=== PATIENT | male | born 1950 | race Caucasian/White ===

== ENCOUNTER → 2017-01-23 | Outpatient (CLI) | payer BC ==
[~2017-01-23] MED LIST: ATEN50TA8 PO; ATOR-24 PO; AVD5 PO; CLOP1TAB15 PO; GEMF600T3 PO
[2017-01-23 09:28] LABS: BASO % 0.3 %; BASO ABS # 0.02 K/uL (0-0.2); COMPLETE YES; EOS % 4.3 %; IG% 0.3 %; LYMPH % 41.6 %; MEAN CELL VOLUME 93.7 fL (80-100); MEAN CORPUSCULAR HEMOGLOBIN 31.4 pg (25-34); MEAN CORPUSCULAR HGB CONC 33.5 g/dl (32-36); MEAN PLATELET VOLUME 9.2 fL (7.4-10.4); MONO % 13.3 %; NEUT % 40.2 %; PLATELET COUNT 250 K/uL (130-400); RED BLOOD COUNT 4.59 M/uL (4.7-6.1); WHITE BLOOD COUNT 6.49 K/uL (4.8-10.8)
[2017-01-23 09:58] LABS: ALT/SGPT 31 U/L (12-78); AST/SGOT 16 U/L (15-37); BLOOD UREA NITROGEN 23 mg/dl (7-18); BUN/CREATININE RATIO 19.4 (10-20); CARBON DIOXIDE 26 mmol/L (21-32); CHLORIDE 113 mmol/L (98-107); GLUCOSE 103 mg/dl (70-99); SODIUM 144 mmol/L (136-145)
[2017-01-23 10:00] LABS: ALB/GLOB RATIO 0.9 (0.9-2); ALKALINE PHOSPHATASE 64 U/L (45-117); CHOLESTEROL 127 mg/dl (0-200); CHOLESTEROL/HDL RATIO 2.5; HDL CHOLESTEROL 51 mg/dl; LDL CHOLESTEROL CALCULATED 62 mg/dl; TRIGLYCERIDES 68 mg/dl (0-150); VERY LOW DENSITY LIPOPROT CALC 14 mg/dl
--- NOTE | 2017-01-30 09:01 | CODING QUERY NO DIAGNOSIS ---
TREATMENT RENDERED WITHOUT A DIAGNOSIS : 1950 To promote full compliance with coding requirements relating to patient care, physician participation is requested in all cases of radiology transcriptionist uncertainty. Please assist us with providing a diagnosis/symptom for the test(s) below: A diagnosis/symptom was not documented on your Order. A valid diagnosis/symptom is required to bill all insurances. Please remember that we are unable to code a diagnosis of rule out, probable, possible, questionable, or suspected. Tests that require a diagnosis: DOS: 01/23/17 * CBC WITH AUTO DIFFER DIAGNOSIS: * COMPREHENSIVE METABO DIAGNOSIS: * LIPID FAST RFLX LDLD DIAGNOSIS: Provider Signature: Date: Thank you Aliya Johnson Health Information Management Once completed, please kindly fax back to [phone] For questions please call [phone]
== END | disposition home or self-care (01) ==
LOC: C.LAB1850 08:49
PROVIDERS: ATTEND Internal Medicine Cardiovascular Disease
DX: I25.10 Atherosclerotic heart disease of native coronary artery without angina pectoris (principal)

== ENCOUNTER → 2017-06-23 | Outpatient (CLI) | payer BC ==
[2017-06-23 10:12] LABS: BASO % 0.4 %; BASO ABS # 0.03 K/uL (0-0.2); COMPLETE YES; IG% 0.3 %; LYMPH % 46.6 %; LYMPH ABS # 3.25 K/uL (1.2-3.4); MEAN CELL VOLUME 93.4 fL (80-100); MEAN CORPUSCULAR HEMOGLOBIN 31.4 pg (25-34); MEAN CORPUSCULAR HGB CONC 33.6 g/dl (32-36); MEAN PLATELET VOLUME 9.6 fL (7.4-10.4); MONO % 11.3 %; NEUT % 35.4 %; PLATELET COUNT 255 K/uL (130-400); RED BLOOD COUNT 4.71 M/uL (4.7-6.1); WHITE BLOOD COUNT 6.98 K/uL (4.8-10.8)
[2017-06-23 10:39] LABS: ALB/GLOB RATIO 0.9 (0.9-2); ALKALINE PHOSPHATASE 62 U/L (45-117); ALT/SGPT 33 U/L (12-78); AST/SGOT 18 U/L (15-37); BLOOD UREA NITROGEN 20 mg/dl (7-18); BUN/CREATININE RATIO 20.9 (10-20); CALCIUM 9.5 mg/dl (8.5-10.1); CARBON DIOXIDE 27 mmol/L (21-32); CHLORIDE 109 mmol/L (98-107); CHOLESTEROL 134 mg/dl (0-200); CHOLESTEROL/HDL RATIO 2.8; CREATININE 0.97 mg/dl (0.60-1.40); GLUCOSE 102 mg/dl (70-99); HDL CHOLESTEROL 48 mg/dl; LDL CHOLESTEROL CALCULATED 60 mg/dl; POTASSIUM 4.1 mmol/L (3.5-5.1); SODIUM 138 mmol/L (136-145); TRIGLYCERIDES 131 mg/dl (0-150); URIC ACID 5.2 mg/dl (2.6-7.2); VERY LOW DENSITY LIPOPROT CALC 26 mg/dl
[2017-06-23 10:47] LABS: PROSTATE SPECIFIC ANTIGEN 0.304 ng/ml (0.000-4.000); TOTAL IRON BINDING CAPACITY 341 mcg/dl (250-450)
[2017-06-23 12:15] LABS: ESTIMATED AVERAGE GLUCOSE 120 mg/dl; HA1C FLAG Normal (Normal)
== END | disposition home or self-care (01) ==
LOC: C.LAB1850 08:56
PROVIDERS: ATTEND Family Medicine
DX: R73.09 Other abnormal glucose (principal); E55.9 Vitamin D deficiency, unspecified; D51.9 Vitamin B12 deficiency anemia, unspecified; E78.9 Disorder of lipoprotein metabolism, unspecified; R53.83 Other fatigue

== ENCOUNTER → 2017-10-21 | Outpatient (CLI) | payer BC | END | disposition home or self-care (01) | LOC: C.LABSPEC 14:22 | PROVIDERS: ATTEND Family Medicine | DX: S89.91XA Unspecified injury of right lower leg, initial encounter (principal); X58.XXXA Exposure to other specified factors, initial encounter ==

== ENCOUNTER → 2018-02-15 | Outpatient (CLI) | payer BC ==
[~2018-02-15] MED LIST changes: -GEMF600T3 PO; +GEMF600T5 PO
[2018-02-15 10:11] LABS: BASO % 0.1 %; BASO ABS # 0.01 K/uL (0-0.2); EOS % 6.2 %; HEMATOCRIT 44.2 % (42-52); IG# 0.01 K/uL (0.00-0.02); LYMPH % 38.1 %; LYMPH ABS # 3.08 K/uL (1.2-3.4); MEAN CELL VOLUME 91.3 fL (80-100); MEAN CORPUSCULAR HGB CONC 33.9 g/dl (32-36); MEAN PLATELET VOLUME 9.5 fL (7.4-10.4); MONO ABS # 0.73 K/uL (0.11-0.59); NEUT % 46.5 %; NEUT ABS # 3.75 K/uL (1.4-6.5); PLATELET COUNT 250 K/uL (130-400); RED CELL DISTRIBUTION WIDTH CV 14.3 % (11.5-14.5); RED CELL DISTRIBUTION WIDTH SD 48.2 fL (36.4-46.3); WHITE BLOOD COUNT 8.08 K/uL (4.8-10.8)
[2018-02-15 10:54] LABS: BLOOD UREA NITROGEN 23 mg/dl (7-18); CREATININE 1.05 mg/dl (0.60-1.40); GLUCOSE 94 mg/dl (70-99)
[2018-02-15 10:55] LABS: ALBUMIN 3.7 gm/dl (3.4-5.0); ALKALINE PHOSPHATASE 73 U/L (45-117); ALT/SGPT 36 U/L (12-78); AST/SGOT 19 U/L (15-37); CALCIUM 9.1 mg/dl (8.5-10.1); CARBON DIOXIDE 22 mmol/L (21-32); CHOLESTEROL 131 mg/dl (0-200); LDL CHOLESTEROL CALCULATED 59 mg/dl; SODIUM 140 mmol/L (136-145); TOTAL PROTEIN 8.1 gm/dl (6.4-8.2); TRANSFERRIN 263 mg/dl (200-360); URIC ACID 4.9 mg/dl (2.6-7.2)
== END | disposition home or self-care (01) ==
LOC: C.LAB1850 08:57
PROVIDERS: ATTEND Family Medicine
DX: R73.09 Other abnormal glucose (principal); E55.9 Vitamin D deficiency, unspecified; D51.9 Vitamin B12 deficiency anemia, unspecified; E78.9 Disorder of lipoprotein metabolism, unspecified; R53.83 Other fatigue

== ENCOUNTER 2019-08-18 11:54 | Observation (INO) ==
[2019-08-18] MEDS ORDERED: ONDANSETRON INJ 2 MG/ML 2 ML VIAL IV STA (12:24)
[2019-08-18] MEDS ORDERED: ACETAMINOPHEN 1,000 MG/100 ML VIAL IV STA (12:24)
[2019-08-18] MEDS ORDERED: SODIUM CHLORIDE 0.9% 500 ML IV STA (12:24)
[2019-08-18] MEDS ORDERED: KETOROLAC TROMETHAMINE 15 MG/ML VIAL IV STA (12:24)
[2019-08-18 12:31] LABS: POC Urine Bilirubin Negative (Negative); POC Urine Blood 250 (Negative); POC Urine Glucose Normal (Normal); POC Urine Ketones Negative (Negative); POC Urine Leukocytes Negative (Negative); POC Urine Nitrite Negative (Negative); POC Urine Protein Trace (Negative); POC Urine Urobilinogen Normal (Normal); POC Urine pH 6 (4.5-7.5)
[2019-08-18 12:32] LABS: Hematocrit (blood only) 42.6 % (42-52); Hemoglobin 14.3 g/dL (14.0-18.0); Mean Corpuscular Hemoglobin 31.6 pg (25-34); Mean Corpuscular Hgb Conc 33.6 g/dL (32-36); Mean Platelet Volume 9.3 fL (7.4-10.4); Platelet Count 222 K/uL (130-400); RDW Coefficient of Variation 14.3 % (11.5-14.5); Red Blood Count 4.53 M/uL (4.7-6.1); White Blood Count 13.27 K/uL (4.8-10.8)
[2019-08-18 12:48] LABS: Appearance Urine Cloudy (Clear); Bacteria Urine Automated Negative (Negative); Bilirubin Urine Negative (Negative); Blood Urine 3+ (Negative); Color Urine Dark Yellow; Epithelial Cell Urine Auto 0-5 /lpf (0-5); Glucose Urine UA Negative (Negative); Ketones Urine Negative (Negative); Leukocyte Esterase Urine 1+ (Negative); Nitrite Urine Negative (Negative); Protein Urine Trace (Negative); Specific Gravity Urine 1.026 (1.000-1.030); Urobilinogen Urine Negative (Negative)
[2019-08-18 12:53] LABS: BUN Creatinine Ratio 21.4 (10-20); Calcium 9.4 mg/dl (8.5-10.1); Creatinine Clr Calc Pharmacy 70.4 ml/min; Est GFR (African American) 65.6; Est GFR (Non-African American) 56.6; Potassium 3.9 mmol/L (3.5-5.1)
--- NOTE | 2019-08-18 13:02 | CT Scan Report ---
CT abd pelvis wo con CLINICAL HISTORY: 68 years-old Male presenting with r flank pain. TECHNIQUE: Multidetector CT of the abdomen and pelvis was performed without the use of intravenous co ntrast. IV contrast: None. One or more dose lowering techniques were used consistent with the princip les of ALARA (as low as reasonably achievable), including automatic exposure control, mA or kV adjust ment to individual patient size, and/or use of iterative reconstruction. COMPARISON: 09/05/2014. CT DOSE (mGy.cm): The estimated cumulative dose is 1045.56 mGycm. FINDINGS: Repairer Shoe Sticks topogram: Unremarkable. Lung bases: Normal heart size. Coronary artery and aortic valve calcification. The interventricular b lood flow slightly less dense adjacent myocardium suggesting anemia. No pericardial or pleural effusi on. Minimal dependent changes likely atelectasis. Liver: Normal morphology. Normal density. Biliary: No gross biliary ductal dilatation allowing for noncontrast technique. Normal gallbladder. Pancreas: Normal noncontrast appearance. Spleen: Normal noncontrast appearance. Adrenal glands: Normal noncontrast appearance. Kidneys and ureters: Mild right pelvocaliectasis and distention of the proximal right ureter to the l evel of an obstructing 5 mm calculus. Moderate asymmetric right perinephric fat infiltration. Trace p erinephric fluid. Multiple bilateral nonobstructing renal calculi. Underlying renal cysts, the larger on the left, many which have thin mural calcification suggesting minimal complexity (Bosniak 2). Bladder: Normal noncontrast appearance. Pelvic organs: Normal noncontrast appearance. Bowel: Normal appendix. No bowel obstruction. Peritoneal cavity: No free fluid or intraperitoneal gas. Trace retroperitoneal fluid on the right. Lymph nodes: No gross lymphadenopathy allowing for noncontrast technique. Vasculature: Atherosclerosis of the normal caliber abdominal aorta. Abdominal wall: Normal. Musculoskeletal: Normal. IMPRESSION: 1. Obstructing 5 mm proximal right ureteral calculus with resultant mild right hydroureteronephrosis . The degree of retroperitoneal fluid is suspicious for underlying forniceal rupture. 2. Additional bilateral nonobstructing nephrolithiasis. 3. Possible anemia. ACT 112: Negative or not required by law. Electronically signed by: Torin Olivera M.D. 08/18/2019 1:00 PM
--- NOTE | 2019-08-18 14:05 | Emergency Department Note ---
Entered by Marilee Smith acting as a scribe for Saad Thomas MD History of Present Illness General Chief complaint: Kidney Stone Stated complaint: KIDNEY STONE, BACK PAIN Time Seen by Provider: 08/18/19 12:19 Source: patient History of Present Illness Onset (ago): day(s) 4 Location: right (flank) Severity: similar to prior episodes Pain Consistency: + intermittent Maximum Pain Intensity: 10 Quality: + sharp Relieved By: + medication (Advil) Associated symptoms: + other (right flank pain); no fever/chills The patient is a 68 year old male presenting to the Emergency Department complaining of intermittent flank pain starting 4 days go. The patient reports that he experienced sudden right-sided flank pain 4 days ago. He describes this pain as sharp. He states that he has been experiencing this pain daily. He notes that he has experienced these symptoms before as he has a history of kidney stones. He adds that he last passed a kidney stone 8 or 9 years ago. The patient reports that he has been taking Advil daily which has improved his pain. He st ates that he previously followed with Dr. Jj Urologist. He notes that his PCP referred him to the [facility] Emergency Department. The patient denies fevers, chills and testicular pain. Home Medications Home Medications Medication Instructions Recorded Confirmed Type atenolol [Tenormin] 50 mg PO QAM 08/18/19 08/18/19 History atorvastatin [Lipitor] 40 mg PO HS 08/18/19 08/18/19 History clopidogrel [Plavix] 75 mg PO QAM 08/18/19 08/18/19 History finasteride [Proscar] 5 mg PO HS 08/18/19 08/18/19 History gemfibrozil [Lopid] 600 mg PO BID 08/18/19 08/18/19 History nitroglycerin [Nitrostat] 0.4 mg SL Q5M PRN MDD 1.2 mg 08/18/19 08/18/19 History Allergies Allergy/AdvReac Type Severity Reaction Status Date / Time No Known Allergies Allergy Verified 08/18/19 13:21 Past Med/Surg History Medical History Antiplatelet or antithrombotic long-term use BPH (benign prostatic hyperplasia) CAD (coronary artery disease) Dyslipidemia GERD (gastroesophageal reflux disease) Mitral regurgitation Nephrolithiasis Old inferior wall myocardial infarction Family History Other Coronary heart disease Social History marital status: Current Living Situation: Spouse Feels Safe at Home: Yes Smoking Status: Former smoker Hx Alcohol Use: Yes Review of Systems See HPI for pertinent positives & negatives. and A total of 10 systems reviewed and were otherwise negative Physical Exam Vital Signs Vital Signs - 24 hr 08/18/19 12:02 08/18/19 13:54 08/18/19 15:00 Temperature 36.3 C L Temperature Source Oral Pulse Rate 74 Pulse Rate [Finger] 82 58 L Pulse Rhythm [Finger] Regular Regular Respiratory Rate 20 18 16 Respiratory Effort / Characteristics Non-Labored Spontaneous Non-Labored Respiratory Depth Normal Normal Respiratory Pattern Regular Regular Blood Pressure 147/74 H Blood Pressure [Right Arm] 133/63 116/58 L Blood Pressure Mean 98 Blood Pressure Mean [Right Arm] 86 77 Blood Pressure Position Sitting Pulse Oximetry 99 96 93 Oxygen Delivery Method Room Air Room Air Room Air Sepsis Recent Fever Within 48 Hours No Sepsis New/Unexplained Change in Mental Status No Sepsis Action Taken by Nursing No Action Required 08/18/19 16:30 Temperature Temperature Source Pulse Rate 63 Pulse Rate [Finger] Pulse Rhythm [Finger] Respiratory Rate 16 Respiratory Effort / Characteristics Respiratory Depth Respiratory Pattern Blood Pressure 119/65 Blood Pressure [Right Arm] Blood Pressure Mean Blood Pressure Mean [Right Arm] Blood Pressure Position Pulse Oximetry 93 Oxygen Delivery Method Room Air Sepsis Recent Fever Within 48 Hours Sepsis New/Unexplained Change in Mental Status Sepsis Action Taken by Nursing GENERAL: Patient is in no acute distress. HEENT: No acute trauma, normocephalic atraumatic, mucous membranes moist, no nasal congestion, no scleral icterus. NECK: No stridor, no adenopathy, no meningismus, trachea is midline. LUNGS: Clear to auscultation bilaterally, no wheeze, no rhonchi, breath sounds equal. HEART: Without murmurs gallops or rubs, regular rate and rhythm. ABDOMEN: Mildly tender along right side of the abdomen. Soft, bowel sounds positive, no hernias, no peritonitis. BACK: Right flank discomfort to percussion. EXTREMITIES: No cyanosis or edema, full range of motion of all the joints without pain or difficulty, no signs for acute trauma. NEUROLOGIC: Oriented x 3, no acute motor or sensory deficits, no focal weakness. SKIN: No rash, no jaundice, no diaphoresis. Course Course 1220: The patient was evaluated in room B5, and a complete history and physical examination were performed. 1310: I discussed the patients case with Na KC for Dr. Douglas OCONNELL Urology. Dr. Cole reported that there is no current need for emergent intervention but that the patient should stay in the hospital. He states that if the patient doesnt pass the stone by tomorrow then a stent may need to be placed. 1312: I updated the patient at this time. 1352: I discussed the patients case with Dr. Ankush OCONNELL hospitalist. She reports that she will evaluate the patient for further management. Administered Medications Discontinued Medications Acetaminophen (Ofirmev) 1,000 mg in 100 mls @ 400 mls/hr IV NOW STA Stop: 08/18/19 12:38 Last Infusion: 08/18/19 12:49 Dose: 0 mls/hr Documented by: [id number] Admin: 08/18/19 12:32 Dose: 400 mls/hr Documented by: [id number] Sodium Chloride (Nss) 500 mls @ 999 mls/hr IV .Q31M STA Stop: 08/18/19 12:54 Last Infusion: 08/18/19 13:01 Dose: 0 mls/hr Documented by: [id number] Admin: 08/18/19 12:32 Dose: 999 mls/hr Documented by: [id number] Ketorolac Tromethamine (Toradol) 15 mg IV ONE STA Stop: 08/18/19 12:25 Last Admin: 08/18/19 12:32 Dose: 15 mg Documented by: [id number] Ondansetron HCl (Zofran) 4 mg IV NOW STA Stop: 08/18/19 12:25 Last Admin: 08/18/19 12:32 Dose: 4 mg Documented by: [id number] Medical Decision Making Differential Diagnosis Differential diagnoses include renal colic, hydronephrosis, pyleonephritis, UTI, biliary colic, renal failure and musculoskeletal pain amongst others. Medical Records Attestation: I reviewed the patient's medical records. Home Medications Current Medication List: was personally reviewed by az Laboratory Data Attestation: I reviewed the patient's lab results. Result diagrams: 08/18/19 12:19 08/18/19 12:19 Lab Results 08/18/19 08/18/19 08/18/19 Range/Units 12:19 12:19 12:19 WBC 13.27 H (4.8-10.8) K/uL RBC 4.53 L (4.7-6.1) M/uL Hgb 14.3 (14.0-18.0) g/dL Hct 42.6 (42-52) % MCV 94.0 (80-100) fL MCH 31.6 (25-34) pg MCHC 33.6 (32-36) g/dL RDW Std Deviation 49.0 H (36.4-46.3) fL RDW Coeff of Karl 14.3 (11.5-14.5) % Plt Count 222 (130-400) K/uL MPV 9.3 (7.4-10.4) fL Sodium 140 (136-145) mmol/L Potassium 3.9 (3.5-5.1) mmol/L Chloride 110 H (98-107) mmol/L Carbon Dioxide 25 (21-32) mmol/L Anion Gap 5.0 (3-11) BUN 28 H (7-18) mg/dl Creatinine 1.29 (0.6-1.4) mg/dl Est Cr Clr Drug Dosing 70.4 ml/min Est GFR ( Amer) 65.6 Est GFR (Non-Af Amer) 56.6 BUN/Creatinine Ratio 21.4 H (10-20) Glucose 133 H (70-99) mg/dl Calcium 9.4 (8.5-10.1) mg/dl Urine Color Urine Appearance (Clear) Urine pH (4.5-7.5) POC Urine pH 6 (4.5-7.5) Ur Specific [place] (1.000-1.030) Urine Protein (Negative) POC Urine Protein Trace H (Negative) Urine Glucose (UA) (Negative) POC Ur Glucose (UA) Normal (Normal) Urine Ketones (Negative) POC Urine Ketones Negative (Negative) Urine Blood (Negative) POC Urine Blood 250 H (Negative) Urine Nitrite (Negative) POC Urine Nitrite Negative (Negative) Urine Bilirubin (Negative) POC Urine Bilirubin Negative (Negative) Urine Urobilinogen (Negative) POC Urine Urobilinogen Normal (Normal) Ur Leukocyte Esterase (Negative) POC U Leukocyte Esteras Negative (Negative) Urine WBC (Auto) (0-5) /hpf Urine RBC (Auto) (0-4) /hpf U Hyaline Cast (Auto) (0-5) /lpf U Epithel Cells (Auto) (0-5) /lpf Urine Bacteria (Auto) (Negative) 08/18/19 Range/Units 12:19 WBC (4.8-10.8) K/uL RBC (4.7-6.1) M/uL Hgb (14.0-18.0) g/dL Hct (42-52) % MCV (80-100) fL MCH (25-34) pg MCHC (32-36) g/dL RDW Std Deviation (36.4-46.3) fL RDW Coeff of Karl (11.5-14.5) % Plt Count (130-400) K/uL MPV (7.4-10.4) fL Sodium (136-145) mmol/L Potassium (3.5-5.1) mmol/L Chloride (98-107) mmol/L Carbon Dioxide (21-32) mmol/L Anion Gap (3-11) BUN (7-18) mg/dl Creatinine (0.6-1.4) mg/dl Est Cr Clr Drug Dosing ml/min Est GFR ( Amer) Est GFR (Non-Af Amer) BUN/Creatinine Ratio (10-20) Glucose (70-99) mg/dl Calcium (8.5-10.1) mg/dl Urine Color Dark Yellow Urine Appearance Cloudy A (Clear) Urine pH 5.0 (4.5-7.5) POC Urine pH (4.5-7.5) Ur Specific [place] 1.026 (1.000-1.030) Urine Protein Trace H (Negative) POC Urine Protein (Negative) Urine Glucose (UA) Negative (Negative) POC Ur Glucose (UA) (Normal) Urine Ketones Negative (Negative) POC Urine Ketones (Negative) Urine Blood 3+ H (Negative) POC Urine Blood (Negative) Urine Nitrite Negative (Negative) POC Urine Nitrite (Negative) Urine Bilirubin Negative (Negative) POC Urine Bilirubin (Negative) Urine Urobilinogen Negative (Negative) POC Urine Urobilinogen (Normal) Ur Leukocyte Esterase 1+ H (Negative) POC U Leukocyte Esteras (Negative) Urine WBC (Auto) 10-30 H (0-5) /hpf Urine RBC (Auto) 10-30 H (0-4) /hpf U Hyaline Cast (Auto) 1-5 (0-5) /lpf U Epithel Cells (Auto) 0-5 (0-5) /lpf Urine Bacteria (Auto) Negative (Negative) Imaging Data Radiologist's Impression: Radiology results as stated below per my review and the radiologist's interpretation: CT abd pelvis wo con CLINICAL HISTORY: 68 years-old Male presenting with r flank pain. TECHNIQUE: Multidetector CT of the abdomen and pelvis was performed without the use of intravenous contrast. IV contrast: None. One or more dose lowering techniques were used consistent with the principles of ALARA (as low as reasonably achievable), including automatic exposure control, mA or kV adjustment to individual patient size, and/or use of iterative reconstruction. COMPARISON: 09/05/2014. CT DOSE (mGy.cm): The estimated cumulative dose is 1045.56 mGycm. FINDINGS: Vamp Marker topogram: Unremarkable. Lung bases: Normal heart size. Coronary artery and aortic valve calcification. The interventricular blood flow slightly less dense adjacent myocardium suggesting anemia. No pericardial or pleural effusion. Minimal dependent changes likely atelectasis. Liver: Normal morphology. Normal density. Biliary: No gross biliary ductal dilatation allowing for noncontrast technique. Normal gallbladder. Pancreas: Normal noncontrast appearance. Spleen: Normal noncontrast appearance. Adrenal glands: Normal noncontrast appearance. Kidneys and ureters: Mild right pelvocaliectasis and distention of the proximal right ureter to the level of an obstructing 5 mm calculus. Moderate asymmetric right perinephric fat infiltration. Trace perinephric fluid. Multiple bilateral nonobstructing renal calculi. Underlying renal cysts, the larger on the left, many which have thin mural calcification suggesting minimal complexity (Bosniak 2). Bladder: Normal noncontrast appearance. Pelvic organs: Normal noncontrast appearance. Bowel: Normal appendix. No bowel obstruction. Peritoneal cavity: No free fluid or intraperitoneal gas. Trace retroperitoneal fluid on the right. Lymph nodes: No gross lymphadenopathy allowing for noncontrast technique. Vasculature: Atherosclerosis of the normal caliber abdominal aorta. Abdominal wall: Normal. Musculoskeletal: Normal. IMPRESSION: 1. Obstructing 5 mm proximal right ureteral calculus with resultant mild right hydroureteronephrosis. The degree of retroperitoneal fluid is suspicious for underlying forniceal rupture. 2. Additional bilateral nonobstructing nephrolithiasis. 3. Possible anemia. ACT 112: Negative or not required by law. Electronically signed by: Torin Olivera M.D. 08/18/2019 1:00 PM Blood Pressure Blood Pressure Findings: Elevated blood pressure Blood Pressure Disposition: further management by hospitalist MDM Narrative There is a mild leukocytosis which could be consistent with infection or the pain. No concerning anemia. No significant electrolyte abnormality or kidney failure. Urinalysis does show hematuria, no evidence for infection. Abdominal and pelvis CT shows a 5 mm proximal right ureteral stone with a forniceal rupture presumed. Hydronephrosis was present. The patient presents with right flank pain and some nausea. He appears to have a right ureteral stone as the cause for his symptoms. I discussed the case with urology. A hospital stay was felt warranted. Patient may be stented tomorrow. I did speak to the patient and case management coordinator. The on- call hospitalist was consulted. The patient received IV saline, IV Tylenol, IV Toradol and IV Zofran, he is feeling more comfortable. Impression & Plan Renal colic, Hydronephrosis, Right flank pain Discharge Plan Visit Data Chief Complaint: Kidney Stone Stated Complaint: KIDNEY STONE, BACK PAIN ED Provider: Saad Thomas Discharge Problem: Renal colic, Hydronephrosis, Right flank pain Patient Disposition: Being Evaluated by Hospitalist Discharge Instructions Interventions: ED Discharge Assessment Last Done: 08/18/19 16:30 Forms Stand Alone Forms: My [facility] Prescriptions Prescriptions: No Action atorvastatin [Lipitor] 40 mg tablet 40 mg PO HS RF: 0 clopidogrel [Plavix] 75 mg tablet 75 mg PO QAM RF: 0 gemfibrozil [Lopid] 600 mg tablet 600 mg PO BID RF: 0 nitroglycerin [Nitrostat] 0.4 mg tablet, sublingual 0.4 mg SL Q5M MDD 1.2 mg PRN (Reason: Chest Pain) RF: 0 atenolol [Tenormin] 50 mg tablet 50 mg PO QAM RF: 0 finasteride [Proscar] 5 mg tablet 5 mg PO HS RF: 0 Referrals Referrals: Shaw Pelletier MD [Primary Care Provider] - Discharge Problem: Hydronephrosis Qualifiers: Hydronephrosis type: unspecified Qualified Code(s): N13.30 - Unspecified hydronephrosis The scribe's documentation has been prepared under my direction and personally reviewed by me in its entirety. I confirm that the note above accurately reflects all work, treatment, procedures, and medical decision making performed by me.
--- NOTE | 2019-08-18 15:38 | History & Physical Report ---
Date of Service August 18, 2019 Assessment & Plan (1) Renal colic: Admit to [facility] Vital signs every 4 hours Replenish electrolytes Continue IV fluid hydration for obstructing calculus in the right ureter. Consult urology for possible stent placement in a.m. N.p.o. after midnight for possible procedure of stent placement by urology DVT prophylaxis SCDs and teds Full code Present on Admission?: Yes (2) Hydronephrosis: As the above Present on Admission?: Yes (3) Right flank pain: As the above Pain management Antinausea medication Continue IV hydration Present on Admission?: Yes (4) Mitral regurgitation: Stable at this point, continue controlling blood pressure and hyperlipidemia. Present on Admission?: Yes (5) Dyslipidemia: Fasting lipid panel pending. Continue gemfibrozil 600 mg p.o. twice daily, atorvastatin 40 mg p.o. nightly. Present on Admission?: Yes (6) CAD (coronary artery disease): Stable, continue atenolol 50 mg p.o. every morning, Atorvastatin 40 mg p.o. nightly, Clopidogrel 75 mg p.o. every morning, Gemfibrozil 600 mg p.o. twice daily, Nitroglycerin 0.4 mg SL every 5 minutes as needed. Present on Admission?: Yes (7) Old inferior wall myocardial infarction: As the above, continue management of coronary artery disease, dietary implementation and medical management. (8) Benign prostatic hyperplasia: Stable, continue finasteride 5 mg p.o. nightly. Tamsulosin 0.04 mg nightly Present on Admission?: Yes History of Present Illness Chief Complaint: Right flank pain Primary Care Provider: Shaw Pelletier MD The patient is a 68 years old male with past medical history of hyperlipidemia, hypertension, coronary artery disease, who presents to the emergency room with a complaint of right flank pain for 2 to 3 days. Patient states that in the past he had kidney stones and this appears to be another episode. Patient was seen by urology in the past with , but he said it was most likely 4 to 5 years ago. Patient denies fever, chills, chest pain, shortness of breath, abdominal pain, frequency, urgency. Labs are reviewed and WBCs is 13.27, hemoglobin 14.3, hematocrit 42.6, platelets 222, sodium 140, potassium 3.9, chloride 110, carbon dioxide 25, anion gap 5, BUN 28, creatinine 1.29, GFR 56.6, hemoglobin A1c in February 2019 6, calcium 9.4. Urine is cloudy, with trace protein and 3+ blood,Negative nitrate, leukocyte esterase 1+, WBCs 10-30, and RBCs 10-30.CT abdomen and pelvis without IV contrast shows: Right flank pain obstructing 5 mm proximal right ureteral calculus with resultant mild right hydro-urine hydronephrosis. The degree of retroperitoneal fluid is suspicion for underlying fornical rupture. Additional bilateral nonobstructing nephrolithiasis. Possible anemia. Decision was [facility] and urinary tract infection and for further evaluation by urology. Allergies Allergy/AdvReac Type Severity Reaction Status Date / Time No Known Allergies Allergy Verified 08/18/19 13:21 Home Medications Home Medications Medication Instructions Recorded Confirmed Type atenolol [Tenormin] 50 mg PO QAM 08/18/19 08/18/19 History atorvastatin [Lipitor] 40 mg PO HS 08/18/19 08/18/19 History clopidogrel [Plavix] 75 mg PO QAM 08/18/19 08/18/19 History finasteride [Proscar] 5 mg PO HS 08/18/19 08/18/19 History gemfibrozil [Lopid] 600 mg PO BID 08/18/19 08/18/19 History nitroglycerin [Nitrostat] 0.4 mg SL Q5M PRN MDD 1.2 mg 08/18/19 08/18/19 History Past Med/Surg History Medical History Antiplatelet or antithrombotic long-term use BPH (benign prostatic hyperplasia) CAD (coronary artery disease) Dyslipidemia GERD (gastroesophageal reflux disease) Mitral regurgitation Nephrolithiasis Old inferior wall myocardial infarction Family History Other Coronary heart disease Social History marital status: Current Living Situation: Spouse Feels Safe at Home: Yes Smoking Status: Former smoker Hx Alcohol Use: Yes Review of Systems Review of Systems: All systems reviewed & are unremarkable except as noted in HPI & below Physical Exam Constitutional: WD/WN, vitals as above well developed Eyes: PERRL, conjunctivae normal, anicteric sclerae ENMT: external ear and nose normal, oropharynx normal Neck: trachea midline, no thyromegaly Cardiovascular: Heart Sounds: normal S1, normal S2 and + murmur (Mitral valve regurgitation) Vessels: dorsalis pedis pulses present Gastrointestinal (Abdomen): normal bowel sounds, soft, nontender, no hepatosplenomegaly Musculoskeletal: no cyanosis or clubbing, extremities motor strength 5/5 Skin: no rashes, warm and dry Neurologic: patellar DTR's 2+ bilat, sensation intact Genitourinary: Right flank pain Lymphatic: no cervical or axillary lymphadenopathy Results & Data Vital Signs (Past 12 Hours) Vital Signs Temp Pulse Pulse Resp BP BP Pulse Ox 08/18/19 15:00 58 L 16 116/58 L 93 08/18/19 13:54 82 18 133/63 96 08/18/19 12:02 36.3 C L 74 20 147/74 H 99 Code Status & VTE Plan Code Status Full code VTE Prophylaxis Plan VTE Prophylaxis will be ordered: Yes PG Care Time/CCT Total # of Minutes Spent Total Time Spent with Patient: Total time spent is greater than 50% in coordination of care (as documented) at patient's floor/unit and/or counseling patient: Coding Level of Care Code 70679 Initial Inpt Care Lvl 3 Diagnoses Renal colic N23 Hydronephrosis N13.30 Hydronephrosis type: unspecified Right flank pain R10.9 Mitral regurgitation I34.0 Dyslipidemia E78.5 CAD (coronary artery disease) I25.10 Old inferior wall myocardial infarction I25.2 Benign prostatic hyperplasia N40.0 (1) Hydronephrosis Hydronephrosis type: unspecified Qualified Code(s): N13.30 - Unspecified hydronephrosis
[2019-08-18] MEDS ORDERED: POLYETHYLENE (MIRALAX) 17 GM PACK PO PRN (17:07)
[2019-08-18] MEDS ORDERED: MAGNESIUM HYDROXIDE SUSP 30 ML UDC PO PRN (17:07)
[2019-08-18] MEDS ORDERED: ONDANSETRON INJ 2 MG/ML 2 ML VIAL IV PRN (17:07)
[2019-08-18] MEDS ORDERED: ACETAMINOPHEN 325 MG TAB PO PRN (17:07)
[2019-08-18] MEDS ORDERED: NITROGLYCERIN SL 0.4 MG/TAB TAB SL PRN (17:07)
[2019-08-18] MEDS ORDERED: ALUMINUM/MAGNESIUM SUSP 30 ML UDC PO PRN (17:07)
[2019-08-18] MEDS: KETOROLAC TROMETHAMINE 15 MG/ML VIAL IV PRN (17:28)
[2019-08-18] MEDS: NSS + 20MEQ KCL 20 MEQ/1,000 ML BAG IV SCH (17:37)
[2019-08-18] MEDS ORDERED: cefTRIAXone SODIUM 2,000 MG in DEXTROSE 5% 50 ML IV SCH (18:00)
[2019-08-18] MEDS: gemfibroziL 600 MG TAB PO SCH (20:41)
[2019-08-18] MEDS ORDERED: FINASTERIDE 5 MG TAB PO SCH (21:00)
[2019-08-18] MEDS ORDERED: TAMSULOSIN HCL 0.4 MG CAP PO SCH (21:00)
[2019-08-18] MEDS ORDERED: ATORVASTATIN 40 MG TAB PO SCH (21:00)
[2019-08-19] MEDS: NSS + 20MEQ KCL 20 MEQ/1,000 ML BAG IV SCH (04:18)
[2019-08-19] MEDS: KETOROLAC TROMETHAMINE 15 MG/ML VIAL IV PRN (05:52)
[2019-08-19] MEDS ORDERED: CIPROFLOXACIN 400 MG/200 ML BAG IV SCH (06:00)
[2019-08-19 06:18] LABS: Basophils # (auto) 0.02 K/uL (0-0.2); Basophils % (auto) 0.2 %; Eosinophils # (auto) 0.28 K/uL (0-0.5); Eosinophils % (auto) 2.7 %; Hematocrit (blood only) 38.1 % (42-52); Hemoglobin 12.7 g/dL (14.0-18.0); Immature Granulocytes # (auto) 0.03 K/uL (0.00-0.02); Immature Granulocytes % (auto) 0.3 %; Lymphocytes # (auto) 2.85 K/uL (1.2-3.4); Lymphocytes % (auto) 27.8 %; Mean Corpuscular Hemoglobin 31.1 pg (25-34); Mean Corpuscular Hgb Conc 33.3 g/dL (32-36); Mean Corpuscular Volume 93.4 fL (80-100); Mean Platelet Volume 9.3 fL (7.4-10.4); Monocytes # (auto) 1.14 K/uL (0.11-0.59); Monocytes % (auto) 11.1 %; Neutrophils # (auto) 5.92 K/uL (1.4-6.5); Neutrophils % (auto) 57.9 %; Platelet Count 206 K/uL (130-400); RDW Coefficient of Variation 14.1 % (11.5-14.5); RDW Standard Deviation 48.4 fL (36.4-46.3); Red Blood Count 4.08 M/uL (4.7-6.1); White Blood Count 10.24 K/uL (4.8-10.8)
[2019-08-19 06:28] LABS: INR 1.1 (0.9-1.1); Partial Thromboplastin Time 27.6 Seconds (21.0-31.0); Prothrombin Time 10.8 Seconds (9.0-12.0)
[2019-08-19 06:47] LABS: Estimated Average Glucose 126 mg/dl
[2019-08-19 06:48] LABS: Albumin Level 2.9 gm/dl (3.4-5.0); BUN Creatinine Ratio 16.8 (10-20); Calcium 8.8 mg/dl (8.5-10.1); Creatinine Clr Calc Pharmacy 52.4 ml/min; Est GFR (Non-African American) 39.7; Potassium 4.1 mmol/L (3.5-5.1)
[2019-08-19 06:51] LABS: Albumin Globulin Ratio 0.7 (0.9-2); Bilirubin,Total 1.3 mg/dl (0.2-1); Globulin 4.3 gm/dl (2.5-4.0); Total Protein 7.2 gm/dl (6.4-8.2)
[2019-08-19] MEDS: MoRPHine SULFATE 2 MG/ML CARP IV PRN ×2 (07:08→10:28)
[2019-08-19] MEDS: gemfibroziL 600 MG TAB PO SCH (08:29)
--- NOTE | 2019-08-19 08:38 | Urology Consultation ---
Date of Consultation August 19, 2019 Assessment & Plan (1) Hydronephrosis: (2) Right ureteral stone: 68 yo M admitted with right renal colic secondary to 5 mm proximal right ureteral stone. - Ordered KUB - Keep NPO - Strain all urine Findings reviewed with Dr. Jj. Given his right renal colic, ANÍBAL, and hydronephrosis in the context of an obstructing 5 mm right ureteral stone, will proceed with OR for cystoscopy, Right retrograde pyelogram and Right stent placement. Risks and benefits to be reviewed with patient by Dr. Jj. OR notified. Preoperative CXR and EKG ordered. Will cover with IV Ciprofloxacin preoperatively. Discussed with patient . will do retrograde and possible right ureteroscopy but likely stent History of Present Illness Attending Physician: Nelson Lechuga MD History of Present Illness 68 yo M with past medical history of OR, nephrolithiasis, CAD, dyslipidemia, BPH admitted with right flank pain secondary to 5 mm proximal right ureteral stone. Patient admitted through [facility] on 08/18/19 for intermittent right flank pain that started 5 days prior to arrival. Chart review: Afebrile Cr - 1.73 WBC - 10.24 UC&S - pending On IV Ceftriaxone CT abd/pelvis demonstrated obstructing 5 mm proximal right ureteral calculus, mild right hydroureteronephrosis; retroperitoneal fluid suspicious for underlying forniceal rupture. Additional bilateral nonobstructing nephrolithiasis. Alert, sitting up in bed. Was utilizing PO Ketorolac yesterday with moderate relief, but states it provided minimal relief this morning. Pain is improved currently after a dose of IV morphine this AM. No f/c/n/v. Voiding spontaneously. No dysuria, hematuria, or urgency. Followed with [facility] [place] in the [place], Dr. Jj, for history of nephrolithia sis. He reports spontaneous passage in the past, last stone ~8-9 years ago. Allergies Allergy/AdvReac Type Severity Reaction Status Date / Time No Known Allergies Allergy Verified 08/18/19 13:21 Home Medications Home Medications Medication Instructions Recorded Confirmed Type atenolol [Tenormin] 50 mg PO QAM 08/18/19 08/18/19 History atorvastatin [Lipitor] 40 mg PO HS 08/18/19 08/18/19 History clopidogrel [Plavix] 75 mg PO QAM 08/18/19 08/18/19 History finasteride [Proscar] 5 mg PO HS 08/18/19 08/18/19 History gemfibrozil [Lopid] 600 mg PO BID 08/18/19 08/18/19 History nitroglycerin [Nitrostat] 0.4 mg SL Q5M PRN MDD 1.2 mg 08/18/19 08/18/19 History Patient History Medical History (Updated 08/19/19 @ 10:36 by John Hong MD) Acute renal disease creat up from 1 to 1.7 with stone Antiplatelet or antithrombotic long-term use BPH (benign prostatic hyperplasia) CAD (coronary artery disease) Dyslipidemia GERD (gastroesophageal reflux disease) Mitral regurgitation Nephrolithiasis Old inferior wall myocardial infarction Surgical History (Updated 08/19/19 @ 10:29 by John Hong MD) No significant past surgical history Family History Other Coronary heart disease Social History Preferred Language: Pashto Communication Ability: Effective 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 Required: No Beliefs That Will Affect Care: None marital status: Current Living Situation: Spouse Feels Safe at Home: Yes Smoking Status: Former smoker Hx Alcohol Use: No Hx Substance Use: No Review of Systems Constitutional: as per Subjective / HPI Gastrointestinal: as per Subjective / HPI Genitourinary: + as per Subjective / HPI Physical Exam Constitutional: well developed and well nourished; no acute distress and not ill appearing nontoxic in appearance Respiratory: normal respiratory effort and able to speak in complete sentences; no labored breathing Cardiovascular: Extremities: no pedal edema Gastrointestinal (Abdomen): Inspection/Auscultation: abdomen normal to inspection; abdomen not distended Percussion/Palpation: abdomen soft; abdomen nontender and no guarding Neurologic: moves all extremities and awake Psychiatric: A+Ox3, euthymic affect Genitourinary: no CVA tenderness Voiding spontaneously, urine not vi sualized during exam Results & Data Vital Signs (Past 12 Hours) Vital Signs Temp Pulse Resp BP BP Pulse Ox 08/19/19 08:09 36.9 C 69 16 113/61 93 08/18/19 22:59 37.1 C 65 16 112/65 92 PG Care Time/CCT Total # of Minutes Spent Total Time Spent with Patient: Total time spent is greater than 50% in coordination of care (as documented) at patient's floor/unit and/or counseling patient: Coding Level of Care Code 15532 Inpt Consult Level 3 Diagnoses Hydronephrosis N13.30 Hydronephrosis type: unspecified Right ureteral stone N20.1 (1) Hydronephrosis Hydronephrosis type: unspecified Qualified Code(s): N13.30 - Unspecified hydronephrosis
--- NOTE | 2019-08-19 08:56 | XRay Report ---
XR chest 1V portable CLINICAL HISTORY: 68 years-old Male presenting with pre-op. TECHNIQUE: Portable upright AP view of the chest was obtained. COMPARISON: None. FINDINGS: Atherosclerosis of the aortic arch. Cardiac silhouette normal in size. A new opacity at the right ana maria g base. Minimal left basilar opacity also noted. No large effusion or pneumothorax. Osseous structure s normal. Upper abdomen normal. IMPRESSION: 1. Minimal basilar opacities likely atelectasis or scarring. No convincing evidence of acute cardiop ulmonary disease. ACT 112: Negative or not required by law. Electronically signed by: Torin Olivera M.D. 08/19/2019 8:54 AM
[2019-08-19] MEDS ORDERED: CLOPIDOGREL BISULFATE 75 MG TAB PO SCH (09:00)
[2019-08-19] MEDS ORDERED: ATENOLOL 50 MG TABLET PO SCH (09:00)
--- NOTE | 2019-08-19 09:04 | XRay Report ---
XR KUB/Abdomen 1 view CLINICAL HISTORY: 68 years-old Male presenting with right ureteral stone. TECHNIQUE: Single supine view of the abdomen was obtained. COMPARISON: CT from 08/18/2019. FINDINGS: Nonobstructive bowel gas pattern. No gross pneumoperitoneum. Thin calcifications associated with the left kidney relate to the presence of minimally complex cysts . Underlying bilateral nephrolithiasis is better appreciated on recent CT. The recently demonstrated proximal right ureteral calculus is not confidently visualized. Osseous structures normal. IMPRESSION: 1. Recently demonstrated the proximal right ureteral calculus on CT not identified on this exam. 2. Bilateral nephrolithiasis also better appreciated on CT. 3. Thin mural calcification associated with the underlying minimally complex left renal cysts noted. ACT 112: Negative or not required by law. Electronically signed by: Torin Olivera M.D. 08/19/2019 9:02 AM
[2019-08-19] MEDS ORDERED: IOTHALAMATE MEGLUMINE II 17.2% 250 ML VIAL ONE (10:27)
--- NOTE | 2019-08-19 10:31 | Anesthesiology Consultation ---
Date of Service August 19, 2019 Assessment & Plan (1) Encounter for pre-operative examination: Chart Review Chart Review: Acceptable Risk for Surgery History Surgery Operation Date: 08/19/19 09:55 Proposed Procedures p Cystoscopy Retrograde Pyelogram, Right Stent Placement - Case Jj MD Height/Weight Height: 6 ft Weight: 110.3 kg Allergies Allergy/AdvReac Type Severity Reaction Status Date / Time No Known Allergies Allergy Verified 08/18/19 13:21 Medications Home Medications Medication Instructions Recorded Confirmed Last Taken atenolol [Tenormin] 50 mg PO QAM 08/18/19 08/18/19 08/18/19 atorvastatin [Lipitor] 40 mg PO HS 08/18/19 08/18/19 08/17/19 clopidogrel [Plavix] 75 mg PO QAM 08/18/19 08/18/19 08/18/19 finasteride [Proscar] 5 mg PO HS 08/18/19 08/18/19 08/17/19 gemfibrozil [Lopid] 600 mg PO BID 08/18/19 08/18/19 08/18/19 nitroglycerin [Nitrostat] 0.4 mg SL Q5M PRN MDD 1.2 mg 08/18/19 08/18/19 Unknown Active Medications Generic Name Dose Route Start Last Admin Trade Name Freq PRN Reason Stop Dose Admin Atenolol 50 mg 08/19/19 09:00 08/19/19 08:35 Tenormin PO 09/18/19 08:59 50 mg QAM SALVADOR Administration Atorvastatin Calcium 40 mg 08/18/19 21:00 08/18/19 20:41 Lipitor PO 09/17/19 20:59 40 mg HS SALVADOR Administration Clopidogrel Bisulfate 75 mg 08/19/19 09:00 08/19/19 08:29 Plavix PO 09/18/19 08:59 Not Given QAM SALVADOR Finasteride 5 mg 08/18/19 21:00 08/18/19 20:41 Proscar PO 09/17/19 20:59 5 mg HS SALVADOR Administration Gemfibrozil 600 mg 08/18/19 21:00 08/19/19 08:29 Lopid PO 09/17/19 20:59 Not Given BID SALVADOR Ceftriaxone Sodium 2,000 mg/ 70 mls @ 100 mls/hr 08/18/19 18:00 08/18/19 19:08 Dextrose IV 08/28/19 17:59 Infused DAILY@1800 SALVADOR Infusion Protocol Potassium Chloride/Sodium Chloride 20 meq in 1,000 mls @ 100 mls/hr 08/18/19 17:07 08/19/19 06:06 Normal Saline W/20 Meq Kcl IV 09/17/19 17:06 100 mls/hr .Q10H SALVADOR Infusion Ketorolac Tromethamine 15 mg 08/18/19 17:07 08/19/19 05:52 Toradol IV 08/23/19 17:06 15 mg Q6H PRN Administration Pain Protocol Morphine Sulfate 2 mg 08/18/19 17:07 08/19/19 10:28 Morphine Sulfate IV 09/01/19 17:06 2 mg Q2H PRN Administration Pain Tamsulosin HCl 0.4 mg 08/18/19 21:00 08/18/19 20:41 Flomax PO 09/17/19 20:59 0.4 mg HS SALVADOR Administration NPO Date Last Intake of Fluids: 08/19/19 Time Last Intake of Fluids: 00:00 Date Last Intake of Solids: 08/19/19 Time Last Intake of Solids: 00:00 Past Medical History Medical History (Updated 08/19/19 @ 10:36 by John Hong MD) Acute renal disease creat up from 1 to 1.7 with stone Antiplatelet or antithrombotic long-term use BPH (benign prostatic hyperplasia) CAD (coronary artery disease) Dyslipidemia GERD (gastroesophageal reflux disease) Mitral regurgitation Nephrolithiasis Old inferior wall myocardial infarction Past Family History Family History Other Coronary heart disease Past Surgical History Surgical History (Updated 08/19/19 @ 10:29 by John Hong MD) No significant past surgical history Social History Smoking Status: Former smoker Hx Alcohol Use: No Hx Substance Use: No Physical Exam Vital Signs Last Vital Signs Temp 36.9 C 08/19/19 08:09 Pulse 69 08/19/19 08:09 Resp 16 08/19/19 08:09 BP 113/61 08/19/19 08:09 Pulse Ox 93 08/19/19 08:09 Testing Laboratory Results 08/19/19 06:07 08/19/19 06:07 PT 10.8 Seconds (9.0-12.0) 08/19/19 06:07 INR 1.1 (0.9-1.1) 08/19/19 06:07 APTT 27.6 Seconds (21.0-31.0) 08/19/19 06:07 Hemoglobin A1c 6.0 % (4.5-5.6) H 08/19/19 06:07 Urine Color Dark Yellow 08/18/19 12:19 Urine Appearance Cloudy (Clear) A 08/18/19 12:19 Urine pH 5.0 (4.5-7.5) 08/18/19 12:19 Ur Specific Embarrass 1.026 (1.000-1.030) 08/18/19 12:19 Urine Protein Trace (Negative) H 08/18/19 12:19 Urine Glucose (UA) Negative (Negative) 08/18/19 12:19 Urine Ketones Negative (Negative) 08/18/19 12:19 Urine Nitrite Negative (Negative) 08/18/19 12:19 Ur Leukocyte Esterase 1+ (Negative) H 08/18/19 12:19 Urine WBC (Auto) 10-30 /hpf (0-5) H 08/18/19 12:19 Urine RBC (Auto) 10-30 /hpf (0-4) H 08/18/19 12:19 U Hyaline Cast (Auto) 1-5 /lpf (0-5) 08/18/19 12:19 U Epithel Cells (Auto) 0-5 /lpf (0-5) 08/18/19 12:19 Urine Bacteria (Auto) Negative (Negative) 08/18/19 12:19 Electrocardiogram Date: 08/19/19 Findings: + NSR @ (78) and + CA (old inferior) Chest X-Ray Date: 08/19/19 Findings: + NAD
[2019-08-19] MEDS ORDERED: fentaNYL citrate 100 MCG/2 ML VIAL ONE (10:57)
[2019-08-19] MEDS ORDERED: MIDAZOLAM HCL 1 MG/ML 2ML VIAL ONE (10:57)
[2019-08-19] MEDS ORDERED: LIDOCAINE HCL 2% 2 ML VIAL/AMP(20MG/ML) INFIL ONE (10:57)
[2019-08-19] MEDS ORDERED: PROPOFOL IV EMULSION 10 MG/ML 20 ML VIAL IV ONE (10:57)
--- NOTE | 2019-08-19 12:41 | Post Operative Brief Note ---
PG Immediate Post Op with CF Date of Surgery August 19, 2019 Pre & Post Diagnosis Operation Date: 08/19/19 09:55 Pre-Op Diagnosis: Hydronephrosis, Right Ureteral Stone Post-Op Diagnosis: Hydronephrosis, Right Ureteral Stone I identified the patient and participated in the time-out.: Yes Procedure Operation Date: 08/19/19 09:55 Actual Procedures p Cystoscopy, Right Retrograde Pyelogram, Ureteral Dilation, Laser fragmentation of stone, Right Stent Placement(Right) - Case Jj MD Surgeon Case Jj MD Grinding Machine Tender none Estimated Blood Loss 10 Findings Consistent with Post-Op Diagnosis Specimens Specimen Description: none per surgeon
[2019-08-19] MEDS ORDERED: DEXAMETHASONE SOD INJ 4 MG/ML VIAL ONE (12:54)
[2019-08-19] MEDS ORDERED: ONDANSETRON INJ 2 MG/ML 2 ML VIAL ONE (12:54)
--- NOTE | 2019-08-19 13:24 | Anesthesiology Progress Note ---
Date of Service August 19, 2019 Anesthesia Post Procedure Vital Signs Vital Signs: Temp Pulse Pulse Pulse Resp BP BP 08/19/19 13:20 36.9 C 67 17 128/59 L 08/19/19 13:10 84 19 123/67 08/19/19 13:00 74 18 116/63 08/19/19 12:51 36.6 C 78 18 122/51 L 08/19/19 10:54 37.0 C 72 18 08/19/19 08:09 36.9 C 69 16 113/61 08/18/19 22:59 37.1 C 65 16 08/18/19 16:50 36.8 C 59 L 16 08/18/19 16:30 63 16 119/65 08/18/19 15:00 58 L 16 08/18/19 13:54 82 18 BP Pulse Ox 08/19/19 13:20 95 08/19/19 13:10 100 08/19/19 13:00 98 08/19/19 12:51 99 08/19/19 10:54 133/63 100 08/19/19 08:09 93 08/18/19 22:59 112/65 92 08/18/19 16:50 126/74 95 08/18/19 16:30 93 08/18/19 15:00 116/58 L 93 08/18/19 13:54 133/63 96 Pain Intensity Right Flank: Pain Intensity: 4 Transfer of Care Handoff Completed per policy Notes Mental Status: alert / awake / arousable Patient Amnestic to Procedure: Yes Nausea / Vomiting: adequately controlled Pain: adequately controlled Airway Patency, RR, SpO2: stable & adequate BP & HR: stable & adequate Hydration State: stable & adequate Anesthetic Complications: no major complications apparent
--- NOTE | 2019-08-19 14:39 | Fluoroscopy Report ---
FL retrograde includes kub CLINICAL HISTORY: Laser lithotripsy COMPARISON STUDY: Supine abdomen dated 08/19/2019 FLUOROSCOPY TIME: 64 seconds. NUMBER OF FLUOROSCOPIC IMAGES: 9 FINDINGS: Images demonstrate retrograde catheterization of the right ureter. A guidewire was placed i nto the renal pelvis. A ureteroscope was introduced and by history laser lithotripsy was performed. T he final image demonstrates the proximal pigtail right-sided nephroureteral stent. IMPRESSION: Intraprocedural images during a right-sided retrograde study with laser lithotripsy and stent placement. ACT 112: Negative or not required by law. Electronically signed by: Brennan Mcnulty M.D. 08/19/2019 2:38 PM
--- NOTE | 2019-08-19 17:30 | Operative Report ---
DATE OF OPERATION: 08/19/2019 PROCEDURE PERFORMED: Right ureteroscopy, laser lithotripsy and stent placement. HISTORY OF PRESENTATION: The patient is a 68-year-old male with previous history of passing stones who presented with several days of right flank pain that was unremitting to the ER yesterday, was admitted, had ongoing pain this morning. On the CT scan there was a proximal 5-6 mm stone that was difficult to see on KUB this morning. The patient again takes Plavix and nitroglycerin. Because of the fact it was difficult to see, initially we were just planning on placing a stent and possibly doing lithotripsy down the road, but given the complexity of being on Plavix with this I attempted to do a ureteroscopy. 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 After he was taken to the OR and given general anesthesia, prepped and draped in the usual sterile fashion and placed in dorsal lithotomy position cystoscopy was performed. There was a stricture that was dilated with a 17-Peruvian scope and then a 21-Peruvian scope subsequently. Once inside the bladder the prostate was minimally obstructing and I could see some small stones in the bladder, but the right ureteral orifice was not traumatized. Retrograde was performed and there was clearly hydronephrosis, could not definitely see a stone, but there appeared to be blockage in the proximal ureter. So I placed a Dual-Flex guidewire beyond this into the renal pelvis on the right side and then dilated the distal ureter with a 4 cm 18 Peruvian balloon until it was clearly large enough for a flexible scope. Subsequently, I was able to place a second guidewire beyond the stone and then I put the flexible ureteroscope up to the stone. I was able to fragment the stone into 5-6 pieces. The 2 larger pieces appeared to be 2-3 mm and more difficult to reach as they bounced around and I was having episodes where the laser fiber would hit the wall and so after breaking the stone into pieces I thought would probably pass and given the trauma to the wall was having I elected to terminate the procedure and place a 6-Peruvian 26 cm stent. It appeared to be in good position proximally at the end of the procedure with the strings of the distal part of the stent in the bladder. The patient was transferred to recovery room in stable condition. I attest to the content of the Intraoperative Record and any orders documented therein. Any exception s are noted below.
[2019-08-19 18:46] LABS: BUN Creatinine Ratio 19.6 (10-20); Calcium 8.9 mg/dl (8.5-10.1); Creatinine Clr Calc Pharmacy 64.3 ml/min; Est GFR (African American) 58.9; Est GFR (Non-African American) 50.8; Potassium 4.2 mmol/L (3.5-5.1)
--- NOTE | 2019-08-19 18:50 | Discharge Summary ---
Date of Service August 19, 2019 Admission HPI Per Admitting Provider The patient is a 68 years old male with past medical history of hyperlipidemia, hypertension, coronary artery disease, who presents to the emergency room with a complaint of right flank pain for 2 to 3 days. Patient states that in the past he had kidney stones and this appears to be another episode. Patient was seen by urology in the past with , but he said it was most likely 4 to 5 years ago. Patient denies fever, chills, chest pain, shortness of breath, abdominal pain, frequency, urgency. Labs are reviewed and WBCs is 13.27, hemoglobin 14.3, hematocrit 42.6, platelets 222, sodium 140, potassium 3.9, chloride 110, carbon dioxide 25, anion gap 5, BUN 28, creatinine 1.29, GFR 56.6, hemoglobin A1c in February 2019 6, calcium 9.4. Urine is cloudy, with trace protein and 3+ blood,Negative nitrate, leukocyte esterase 1+, WBCs 10-30, and RBCs 10-30.CT abdomen and pelvis without IV contrast shows: Right flank pain obstructing 5 mm proximal right ureteral calculus with resultant mild right hydro-urine hydronephrosis. The degree of retroperitoneal fluid is suspicion for underlying fornical rupture. Additional bilateral nonobstructing nephrolithiasis. Possible anemia. Decision was made to admit patient for nephrolithiasis to [facility] and urinary tract infection and for further evaluation by urology. Principal Diagnosis Right sided ureterolithiasis, renal colic, ANÍBAL, UTI Discharge Exam Constitutional WD/WN, vitals as above Eyes + anicteric sclerae ENMT external ear and nose normal, oropharynx normal Neck trachea midline, no thyromegaly Respiratory normal respiratory effort, lungs clear to auscultation Cardiovascular RRR, no murmur, no edema Chest (Breasts) Chest: normal inspection of chest Gastrointestinal (Abdomen) normal bowel sounds, soft, nontender, no hepatosplenomegaly Musculoskeletal Extremities: extremities normal to inspection; no cyanosis and no clubbing Skin no rashes, warm and dry Neurologic moves all extremities and awake; no focal motor deficits Psychiatric A+Ox3, euthymic affect Lymphatic no lymphedema Discharge Data Allergies Allergy/AdvReac Type Severity Reaction Status Date / Time No Known Allergies Allergy Verified 08/18/19 13:21 Consultations 08/18/19 13:29 ED Decision to Admit Stat 08/18/19 17:07 Consult Urology Routine Procedures Performed Operation Date: 08/19/19 09:55 Actual Procedures p Right Stent Placement(Right) - Case Jj MD s Cystoscopy, Right Retrograde Pyelogram, Ureteral Dilation, Laser fragmentation of stone,(Right) - Case Jj MD Ordered Studies 08/18/19 12:24 CT abd pelvis wo con Stat 08/19/19 10:15 FL retrograde includes kub Routine CXR KUB Hospital Course (1) Renal colic: Admitted and given pain control, IVFs Right 5-6mm prox ureteral stone seen on imaging Urology consulted and due to ANÍBAL, pt was taken to OR and had stent placement and fragmentation of stone -treat with Cipro prophylactically x 5 day course UA positive for infection Pain resolved after stent placement but will give small supply of Percocet prn pain, continue FLomax x 7 day course Ur culture growing GNR at the time of discharge and this will need to be followed by your PCP after discharge Cipro given x 10 day course while stent in place for UTI F/u with Urology within 2 weeks for stent removal (2) Hydronephrosis: secondary to ureterolithiasis, now resolved with stent placement (3) Mitral regurgitation: Stable at this point, continue controlling blood pressure and hyperlipidemia. (4) Dyslipidemia: Continue gemfibrozil 600 mg p.o. twice daily, atorvastatin 40 mg p.o. nightly. (5) CAD (coronary artery disease): Stable, continue atenolol 50 mg p.o. every morning, Atorvastatin 40 mg p.o. nightly, Clopidogrel 75 mg p.o. every morning, Gemfibrozil 600 mg p.o. twice daily, Nitroglycerin 0.4 mg SL every 5 minutes as needed. (6) Old inferior wall myocardial infarction: As the above, continue management of coronary artery disease, dietary implementation and medical management. (7) Benign prostatic hyperplasia: Stable, continue finasteride 5 mg p.o. nightly. Tamsulosin 0.4 mg nightly (8) UTI (urinary tract infection): as above -continue CIpro 500mg po bid x 10 days until stent removed Ur culture with GNR at time of discharge--> Ur culture result needs to be followed after discharge (9) ANÍBAL (acute kidney injury): Electromechanisms Design Drafter up to 1.7 after admission secondary to post-renal obstruciton with stone Improved to 1.4 after stent placement and IVF hydration -encouraged po hydration after discharge -repeat BMP with PCP at f/u visit in 1-2 weeks Expect this should resolve -avoid NSAIDs Stable for discharge to home Total Time Total Time Spent Total Time Spent (In Minutes): 35 min Total Time Includes: Examination of the Patient, Discharge Planning and Medication Reconciliation Discharge Plan Discharge Items Patient Disposition: Home - Self-Care Reason For Visit: RIGHT FLANK PAIN Discharge Diagnosis: Kidney stone, Acute kidney injury Condition on Discharge: Good Activity: As commented below Lifting: Wait until after follow-up appointment Bathing: No limitations Exercise/Sports: Gradually increase as tolerated Non-emergency contact: Primary Care Provider and Urologist Call non-emergency contact if: you have any medication questions, your symptoms worsen, your pain is not controlled, your pain is worsening, your pain is unusual for you, your pain is concerning for you, you have a fever and your temperature is above 101 Follow-up/Referrals: Case Jj MD [Physician] - (Please call on Thursday for a hospital follow up appointment to have your stent removed.) Shaw Pelletier MD [Primary Care Provider] - (Please follow up within 1-2 weeks) Diet: Heart Healthy Addtl Attending Provider Instructions: You had a kidney stone and had a procedure to break up the stone and a stent was placed to allow the stones to pass. You had some mild kidney failure from the obstruction the stone caused. Please continue to take Flomax once daily x 7 days and drink plenty of fluids. You can take tylenol or Percocet as needed for pain. Please take the antibiotic Cipro twice a day for 10 more days for urinary tract infection. Follow up with your PCP and Urology within 1-2 weeks. Pending Studies at Discharge: Yes (urine culture) Stand-Alone Forms: My [facility] Link Medications and DC Order Prescriptions: New acetaminophen [Mapap (acetaminophen)] 325 mg Tablet 650 mg PO Q4H PRN (Reason: pain) Qty: 30 RF: 0 tamsulosin 0.4 mg Capsule 0.4 mg PO HS Qty: 7 RF: 0 oxycodone-acetaminophen [Percocet] 5-325 mg tablet 1 tab PO Q8H PRN (Reason: pain) Qty: 10 RF: 0 ciprofloxacin HCl [Cipro] 500 mg tablet 500 mg PO BID Qty: 20 RF: 0 Continued atorvastatin [Lipitor] 40 mg tablet 40 mg PO HS RF: 0 clopidogrel [Plavix] 75 mg tablet 75 mg PO QAM RF: 0 gemfibrozil [Lopid] 600 mg tablet 600 mg PO BID RF: 0 nitroglycerin [Nitrostat] 0.4 mg tablet, sublingual 0.4 mg SL Q5M MDD 1.2 mg PRN (Reason: Chest Pain) RF: 0 atenolol [Tenormin] 50 mg tablet 50 mg PO QAM RF: 0 finasteride [Proscar] 5 mg tablet 5 mg PO HS RF: 0 Discharge Orders: Discharge Order (Routine); Ordered 08/19/19 Ordered By: Chana Schultz/Other Patient Handouts: Prediabetes, A1C Admission Data Admit Date/Time: 08/18/19 15:33 Attending Provider: Chana Rosales Admit Provider: Nelson Lechuga Primary Care Provider: Shaw Pelletier Other Providers: Nelson Lechuga ; Shaw Bruce Coding Level of Care Code D/C Day Management >30 mins Diagnoses Renal colic N23 Hydronephrosis N13.30 Hydronephrosis type: unspecified Mitral regurgitation I34.0 Dyslipidemia E78.5 CAD (coronary artery disease) I25.10 Old inferior wall myocardial infarction I25.2 Benign prostatic hyperplasia N40.0 UTI (urinary tract infection) N39.0 ANÍBAL (acute kidney injury) N17.9
--- NOTE | 2019-08-20 07:49 | Electrocardiogram Report ---
Test Reason : Blood Pressure : / mmHG Vent. Rate : 078 BPM Atrial Rate : 078 BPM P-R Int : 170 ms QRS Dur : 096 ms QT Int : 372 ms P-R-T Axes : 065 025 031 degrees QTc Int : 424 ms Normal sinus rhythm Cannot rule out Inferior infarct (cited on or before 11-OCT-1997) Abnormal ECG When compared with ECG of 12-OCT-1997 06:56, QRS axis Shifted right Confirmed by Case Hoffman ([id number] on 08/20/2019 7:49:12 AM Referred By: REFERRED SELF Confirmed By:Case Hoffman
== END 2019-08-19 19:39 | disposition home or self-care (01) ==
LOC: ED 11:54 → INTOOBSV 15:33 → SUATTDRO 15:33 → 3N 15:33